=== PATIENT | female | born 1995 | race Caucasian/White ===

== ENCOUNTER → 2016-08-28 16:56 | Outpatient (CLI) | payer BC ==
[~2016-08-28 16:56] MED LIST: COLACE100 MG PO; MOTRIN600 MG PO; PERCOCET 5/3251 TA1 PO; PRENATAL COMPLE1 TAB PO
[2016-08-28 17:26] LABS: BASOPHILS 0.3 % (0.0-2.0); EOSINOPHILS 1.5 % (0-7); HEMATOCRIT 41.9 % (36.0-48.0); HEMOGLOBIN 13.6 g/dL (12-16); IMMATURE GRANULOCYTES 0.2 % (0-5); MCH 28.6 pg (26.0-34.0); MCHC 32.5 g/dL (31.0-37.0); MONOCYTES 4.7 % (2-11); NEUTROPHILS 71.3 % (40-80); RBC 4.76 10x6/uL (4.00-5.40); RDW 12.7 % (11.5-14.5)
[2016-08-28 17:34] LABS: PLATELET COUNT 280 10x3/uL (130-400)
[2016-08-28 17:36] LABS: HEMOGLOBIN A1C 5.4 % (4.8-6.0)
[2016-08-28 18:42] LABS: CALC OSMOLALITY 277 mosm/kg (275-300); CALCIUM 9.4 mg/dL (8.5-10.1); CARBON DIOXIDE 25.9 mmol/L (21.0-32.0); CHLORIDE - SERUM 103 mmol/L (98-107); CREATININE - SERUM 0.9 mg/dL (0.6-1.3); GLUCOSE 102 mg/dL (74-106); POTASSIUM - SERUM 3.5 mmol/L (3.5-5.1); SODIUM 140 mmol/L (136-145); T4 THYROXIN - FREE 0.97 ng/dL (0.76-1.46); THYROID STIMULATING HORMONE 0.99 uIU/mL (0.36-3.74); UREA NITROGEN 11 mg/dL (7-18); eGFR NON AFRICAN AMERICAN 85 mL/min (90-120)
[2016-08-30 10:20] LABS: FOLATE (FOLIC ACID) - SERUM 13.3 ng/mL (>3.0)
== END | disposition home or self-care (01) ==
LOC: D.LAB 16:56
PROVIDERS: Specialist
DX: R53.83 Other fatigue (principal); R53.81 Other malaise

== ENCOUNTER 2017-01-23 17:27 | Emergency (ER) | payer BC ==
[2017-01-23 18:09] LABS: BASOPHILS 0.1 % (0-2); HEMATOCRIT 41.2 % (36.0-48.0); HEMOGLOBIN 13.7 g/dL (12-16); IMMATURE GRANULOCYTES 0.3 % (0-5); MCH 28.7 pg (26.0-34.0); MCHC 33.3 g/dL (31.0-37.0); MCV 86.4 fL (80.0-100.0); MEAN PLATELET VOLUME 8.9 fL (7.4-10.4); MONOCYTES 6.2 % (2-11); NEUTROPHILS 76.4 % (40-80); PLATELET COUNT 300 10x3/uL (130-400); RBC 4.77 10x6/uL (4.00-5.40); RDW 12.7 % (11.5-14.5)
[2017-01-23 18:42] LABS: HCG SERUM NEGATIVE (NEGATIVE)
[2017-01-23 18:43] LABS: ALKALINE PHOSPHATASE 53 U/L (46-116); ALT (SGPT) 25 U/L (10-68); BILIRUBIN - TOTAL 0.26 mg/dL (0.2-1.3); CALC OSMOLALITY 280 mosm/kg (275-300); CALCIUM 9.8 mg/dL (8.5-10.1); CARBON DIOXIDE 23.5 mmol/L (21.0-32.0); CHLORIDE - SERUM 104 mmol/L (98-107); CREATININE - SERUM 0.9 mg/dL (0.6-1.3); GLUCOSE 91 mg/dL (74-106); POTASSIUM - SERUM 3.4 mmol/L (3.5-5.1); PROTEIN - SERUM 8.2 g/dL (6.4-8.2); SODIUM 141 mmol/L (136-145); UREA NITROGEN 12 mg/dL (7-18); eGFR NON AFRICAN AMERICAN 85 mL/min (90-120)
[2017-01-23 18:54] LABS: CREATINE KINASE 68 UL (21-215)
[2017-01-23 18:57] LABS: TROPONIN-I < 0.017 ng/mL (0.000-0.060)
== END 2017-01-23 20:07 | disposition home or self-care (01) ==
LOC: D.ER 17:27
PROVIDERS: Emergency Medicine
DX: R07.9 Chest pain, unspecified (principal); R00.0 Tachycardia, unspecified; F17.200 Nicotine dependence, unspecified, uncomplicated

== ENCOUNTER → 2017-01-25 20:20 | Outpatient (CLI) | payer BC ==
[2017-01-25 21:32] LABS: T4 THYROXIN - FREE 1.25 ng/dL (0.76-1.46); THYROID STIMULATING HORMONE 1.51 uIU/mL (0.36-3.74)
[2017-01-30 08:22] LABS: CAT - DOPAMINE <30 pg/mL (0-48); CAT - EPINEPHRINE 29 pg/mL (0-62); CAT - NOREPINEPHRINE 155 pg/mL (0-874)
== END | disposition home or self-care (01) ==
LOC: D.LDO 20:20
PROVIDERS: Obstetrics & Gynecology
DX: Z34.90 Encounter for supervision of normal pregnancy, unspecified, unspecified trimester (principal)

== ENCOUNTER 2017-07-22 07:14 | Day surgery (SDC) | payer BC ==
[~2017-07-22] VITALS: Ht 167.6 cm; Wt 86.8 kg
[2017-07-22] MEDS ORDERED: ZANAFLEX4 MG PO (07:51)
[2017-07-22] MEDS ORDERED: PREMPRO 0.45/1.1 TAB PO (07:52)
[2017-07-22] MEDS ORDERED: VESTURA 3 MG-01 EACH PO (07:52)
[2017-07-22 08:08] LABS: HEMATOCRIT 41.3 % (36.0-48.0); HEMOGLOBIN 13.5 g/dL (12-16); MCH 28.5 pg (26.0-34.0); MCHC 32.7 g/dL (31.0-37.0); MCV 87.1 fL (80.0-100.0); MEAN PLATELET VOLUME 9.4 fL (7.4-10.4); RBC 4.74 10x6/uL (4.00-5.40); RDW 12.5 % (11.5-14.5)
[2017-07-22 08:12] VITALS: BP 126/84; Ht 167.6 cm; Wt 86.8 kg
[2017-07-22 08:14] LABS: HCG URINE NEGATIVE (NEGATIVE)
--- NOTE | 2017-07-22 10:13 | NUR ---
1000-RETURNED TO ROOM FROM GI-ALERT, RESP WITH EASE. DR. BURR IN TO REPORT TO PATIENT AND MOTHER. FULL LIQUIDS SERVED.
--- NOTE | 2017-07-22 10:34 | NUR ---
1030-UP TO BATHROOM, VOIDS. IV D/C. DISCHARGE INSTRUCTIONS REVIEWED.
--- NOTE | 2017-07-22 10:43 | NUR ---
1040-D/C HOME VIA WHEELCHAIR WITH MOTHER TO PRIVATE AUTO.
--- NOTE | 2017-08-01 10:48 | OP ---
PATIENT NAME: JOHN RICHARD MEDICAL RECORD: [id number] :96 LOCATION:[facility] ADMISSION DATE: SURGEON: KIRTI BURR DO DATE OF OPERATION: 07/22/2017 PROCEDURE: EGD with biopsies. INDICATIONS FOR PROCEDURE: Heartburn, nausea, epigastric pain. SCOPE: Olympus video gastroscope. MEDICATIONS: Propofol 400 mg IV per anesthesia. ESTIMATED BLOOD LOSS: Minimal. COMPLICATIONS: None. FINDINGS: Informed consent was given. The patient was made comfortable with the above medication. After reaching an adequate level of sedation by slow IV push, the patient was placed on her left side. The endoscope was then advanced under direct visualization through the mouth to the second portion of the duodenum. The upper, middle, and lower thirds of the esophagus appeared normal. At the GE junction, there was very minimal and mild evidence of LA class A reflux-induced esophagitis. The endoscope was advanced beyond the GE junction into the stomach and retroflexed to view the cardia where a very small sliding hiatal hernia was present. The entire stomach appeared normal, but there was some patchy erythema and granularity consistent with possible gastritis. Random biopsies were taken with cold forceps to submit for histology and to rule out H pylori. The endoscope was advanced beyond the pylorus into the duodenum where the bulb and second portion of the duodenum appeared normal. The endoscope was then withdrawn from the patient. The patient tolerated the procedure well and there were no complications. IMPRESSION: 1. Very minimal LA class A reflux-induced esophagitis. 2. Very small sliding hiatal hernia. 3. Possible gastritis with biopsies pending. PLAN AND RECOMMENDATIONS: 1. Discharge home when recovery parameters are met. 2. Continue current diet. 3. Trial of Protonix 40 mg daily times 30 days. 4. PIPIDA scan to rule out gallbladder dyskinesia based on symptoms. 5. Gastric emptying study to rule out gastroparesis based on nausea and epigastric pain. 6. Further recommendations pending results of radiology studies and trial of PPI as well as biopsy results on today examination. TRANSINT:[id number] Voice Confirmation ID: [id number] DOCUMENT ID: [id number] OPERATIVE REPORT [id number] JOHN RICHARD KIRTI BURR DO at 1048 CC: [id number] DICTATION DATE: 07/22/17 0947 COMPENSATION EXPERT: 07/22/17 1034 [facility] 07/22/17 [address] [place] [address]
== END 2017-07-22 10:40 | disposition home or self-care (01) ==
LOC: D.OPS 07:14
PROVIDERS: Anesthesiology; Internal Medicine Gastroenterology
DX: R10.13 Epigastric pain (principal); R11.0 Nausea; K21.0 Gastro-esophageal reflux disease with esophagitis; K44.9 Diaphragmatic hernia without obstruction or gangrene; Z01.812 Encounter for preprocedural laboratory examination

== ENCOUNTER → 2017-07-30 09:14 | Outpatient (CLI) | payer BC ==
[2017-07-22 08:12] VITALS: BMI 30.9
[~2017-07-30 09:14] MED LIST changes: +PREMPRO 0.45/1.1 TAB PO; +VESTURA 3 MG-01 EACH PO; +ZANAFLEX4 MG PO
== END | disposition home or self-care (01) ==
LOC: D.NM 09:14
DX: R11.0 Nausea (principal); R10.9 Unspecified abdominal pain

== ENCOUNTER → 2017-08-02 08:05 | Outpatient (CLI) | payer BC ==
[2017-07-22 08:12] VITALS: BMI 30.9
== END | disposition home or self-care (01) ==
LOC: D.NM 08:05
DX: R11.0 Nausea (principal); R10.9 Unspecified abdominal pain

== ENCOUNTER 2017-08-26 06:04 | Day surgery (SDC) | payer BC ==
[~2017-08-26] VITALS: Ht 167.6 cm; Wt 85.5 kg
--- NOTE | ~2017-08-26 | OP ---
PATIENT NAME: JOHN RICHARD MEDICAL RECORD: [id number] :96 LOCATION:[facility] ADMISSION DATE: SURGEON: KIRTI BURR DO DATE OF OPERATION: 08/26/2017 PROCEDURE: Colonoscopy. INDICATIONS FOR PROCEDURE: Constipation and abdominal pain. SCOPE: Olympus video pediatric colonoscope. MEDICATIONS: Propofol 600 mg IV and Versed 2 mg IV per anesthesia. WITHDRAWAL TIME: 7 minutes. ESTIMATED BLOOD LOSS: None. COMPLICATIONS: None. FINDINGS: Informed consent was given. The patient was made comfortable with the above medication. After reaching an adequate level of sedation by slow IV push, the patient was placed on her left side. A digital rectal examination was performed and was normal. The endoscope was then advanced under direct visualization to the terminal ileum. The endoscope was slowly withdrawn and mucosa was carefully examined. Prep quality was good. There were no polyps visualized on today's examination. There were no diverticula or other abnormalities visualized. Retroflexion was performed in the rectum with visualization of grade I, nonbleeding internal hemorrhoids. The endoscope was then unretroflexed and withdrawn from the patient. The patient tolerated the procedure well and there were no complications. IMPRESSIONS: 1. Chronic idiopathic constipation versus irritable bowel syndrome which is constipation predominant in light of a normal colonoscopy to the terminal ileum. 2. Grade I nonbleeding internal hemorrhoids. PLAN AND RECOMMENDATIONS: 1. Discharge home when recovery parameters are met. 2. High fiber diet. 3. Supplement diet with 1-2 tablespoons of psyllium husk fiber daily. 4. Continue use of MiraLax as needed for constipation, which the patient states resolves her symptoms. 5. Recall colonoscopy at age 51 for colorectal cancer screening purposes. TRANSINT:[id number] Voice Confirmation ID: [id number] DOCUMENT ID: [id number] KIRTI BURR DO at 1616 CC: [id number] DICTATION DATE: 08/26/17 08 TOW MOTOR DRIVER: 08/26/17 1103 [facility] 08/26/17 [facility] [address] [place] [address]
[2017-08-26 07:03] VITALS: BP 116/81; Ht 167.6 cm; Wt 85.5 kg
[2017-08-26 07:24] LABS: HCG URINE NEGATIVE (NEGATIVE)
[2017-08-26 07:39] LABS: HEMATOCRIT 41.8 % (36.0-48.0); HEMOGLOBIN 13.7 g/dL (12-16); MCH 28.2 pg (26.0-34.0); MCHC 32.8 g/dL (31.0-37.0); MEAN PLATELET VOLUME 9.3 fL (7.4-10.4); RBC 4.86 10x6/uL (4.00-5.40); RDW 12.7 % (11.5-14.5); WBC 7.2 10x3/uL (4.8-10.8)
== END 2017-08-26 09:14 | disposition home or self-care (01) ==
LOC: D.OPS 06:04
PROVIDERS: Anesthesiology; Internal Medicine Gastroenterology
DX: K59.00 Constipation, unspecified (principal); R10.9 Unspecified abdominal pain; K64.0 First degree hemorrhoids; Z01.812 Encounter for preprocedural laboratory examination

== ENCOUNTER 2017-12-24 05:55 | Day surgery (SDC) | payer BC ==
[2017-12-23 14:36] LABS: BASOPHILS 0.2 % (0-2); EOSINOPHILS 1.1 % (0-7); HEMOGLOBIN 13.1 g/dL (12-16); IMMATURE GRANULOCYTES 0.3 % (0-5); LYMPHOCYTES 17.4 % (15-50); MCH 28.2 pg (26.0-34.0); MCHC 32.8 g/dL (31.0-37.0); MCV 86.2 fL (80.0-100.0); MONOCYTES 4.9 % (2-11); NEUTROPHILS 76.1 % (40-80); PLATELET COUNT 289 10x3/uL (130-400); RBC 4.64 10x6/uL (4.00-5.40)
[2017-12-23 15:05] LABS: CALC OSMOLALITY 278 mosm/kg (275-300); CALCIUM 9.2 mg/dL (8.5-10.1); CARBON DIOXIDE 27.6 mmol/L (21.0-32.0); CHLORIDE - SERUM 104 mmol/L (98-107); CREATININE - SERUM 0.7 mg/dL (0.6-1.3); GLUCOSE 95 mg/dL (74-106); POTASSIUM - SERUM 4.1 mmol/L (3.5-5.1); SODIUM 140 mmol/L (136-145); UREA NITROGEN 12 mg/dL (7-18); eGFR NON AFRICAN AMERICAN > 90 mL/min (90-120)
[~2017-12-24] VITALS: Ht 167.6 cm; Wt 90.3 kg
--- NOTE | ~2017-12-24 | OP ---
PATIENT NAME: JOHN RICHARD MEDICAL RECORD: [id number] :96 LOCATION:[facility] ADMISSION DATE: SURGEON: RUSSELL MORALES MD DATE OF OPERATION: 12/24/2017 PREOPERATIVE DIAGNOSES: 1. Biliary dyskinesia. 2. Gastroesophageal reflux disease. POSTOPERATIVE DIAGNOSES: 1. Biliary dyskinesia. 2. Gastroesophageal reflux disease. PROCEDURE: Laparoscopic cholecystectomy. SURGEON: Russell Morales MD JET SKI MECHANIC: Toma Chavez APRN REPORT OF PROCEDURE: The patient's abdomen was prepped and draped in sterile fashion. A cutdown was made on the superior aspect of the umbilicus, 0 Vicryls were placed in the fascia bilaterally and the fascia was incised with 15-blade. I then bluntly entered the peritoneal cavity and placed a 12-mm Ava port. Under direct visualization, a 5 mm trocar was placed in the epigastrium and 2 more 5-mm trocars were placed in the right subcostal region. The gallbladder was grasped and elevated. The cystic artery and cystic duct were dissected free and these were clipped proximally and distally and ligated in standard fashion. The gallbladder was taken off the liver bed using electrocautery and placed into the right upper quadrant. Any bleeding from the liver bed was treated with electrocautery. We irrigated out the right upper quadrant and assured there was no sign of any bleeding or bile leakage. At this point, the ports and insufflation were then removed and the gallbladder was taken out through the umbilicus. The umbilical fascia was closed with interrupted 0 Vicryls times 3. The wounds were then irrigated out with normal saline and infused with 10 mL of 0.25% Marcaine with epinephrine. The skin incisions were all closed with subcutaneous 5-0 Monocryl and dressed appropriately. COMPLICATIONS: None. CONDITION: Stable. ANESTHESIA: General endotracheal and local. BLOOD LOSS: Minimal. TRANSINT:[id number] Voice Confirmation ID: [id number] DOCUMENT ID: [id number] OPERATIVE REPORT [id number] HILARYJOHN RUSSELL MORALES MD at 1031 CC: [id number] DICTATION DATE: 12/24/17 0848 SPIN INSTRUCTOR: 12/24/17 1340 [facility] 12/24/17 [facility] [address] [place] [address]
[2017-12-24 07:13] VITALS: BP 115/76; Ht 167.6 cm; Wt 90.3 kg
[2017-12-24 07:40] LABS: HCG URINE NEGATIVE (NEGATIVE)
[2017-12-24] MEDS ORDERED: HYDROCODONE-APA1 TAB PO (08:50)
== END 2017-12-24 11:10 | disposition home or self-care (01) ==
LOC: D.OPS 05:55
PROVIDERS: Surgery
DX: K81.1 Chronic cholecystitis (principal); K21.9 Gastro-esophageal reflux disease without esophagitis; Z01.812 Encounter for preprocedural laboratory examination

== ENCOUNTER 2018-02-14 20:56 | Emergency (ER) | payer BC ==
[~2018-02-14] VITALS: Ht 167.6 cm; Wt 90.0 kg
[~2018-02-14 20:56] MED LIST changes: +HYDROCODONE-APA1 TAB PO
[2018-02-14 21:08] VITALS: Ht 167.6 cm; Wt 90.0 kg
[2018-02-14] MEDS ORDERED: KEFLEX500 MG PO (22:07)
[2018-02-14] MEDS ORDERED: AFRIN15 ML NASAL (22:07)
[2018-02-14 22:53] VITALS: BP 133/89
== END 2018-02-14 22:59 | disposition home or self-care (01) ==
LOC: D.ER 20:56
DX: H66.91 Otitis media, unspecified, right ear (principal); J01.00 Acute maxillary sinusitis, unspecified

== ENCOUNTER 2018-06-14 14:18 | Emergency (ER) | payer BC ==
[~2018-06-14] VITALS: Ht 167.6 cm; Wt 90.9 kg
[~2018-06-14 14:18] MED LIST changes: +AFRIN15 ML NASAL; +KEFLEX500 MG PO
[2018-06-14 14:24] VITALS: Ht 167.6 cm; Wt 90.9 kg
[2018-06-14] MEDS ORDERED: PROTONIX20 MG PO (14:26)
[2018-06-14 16:56] LABS: BASOPHILS 0.4 % (0-2); EOSINOPHILS 0.5 % (0-7); HEMATOCRIT 43.9 % (36.0-48.0); HEMOGLOBIN 14.7 g/dL (12-16); IMMATURE GRANULOCYTES 0.1 % (0-5); LYMPHOCYTES 21.3 % (15-50); MCH 29.2 pg (26.0-34.0); MCHC 33.5 g/dL (31.0-37.0); MCV 87.3 fL (80.0-100.0); MEAN PLATELET VOLUME 9.5 fL (7.4-10.4); MONOCYTES 6.6 % (2-11); NEUTROPHILS 71.1 % (40-80); PLATELET COUNT 313 10x3/uL (130-400); RBC 5.03 10x6/uL (4.00-5.40); RDW 12.9 % (11.5-14.5); WBC 8.5 10x3/uL (4.8-10.8)
[2018-06-14 17:04] LABS: CALC OSMOLALITY 278 mosm/kg (275-300); CALCIUM 9.8 mg/dL (8.5-10.1); CARBON DIOXIDE 26.1 mmol/L (21.0-32.0); CHLORIDE - SERUM 104 mmol/L (98-107); CREATININE - SERUM 0.8 mg/dL (0.6-1.3); GLUCOSE 89 mg/dL (74-106); POTASSIUM - SERUM 3.5 mmol/L (3.5-5.1); SODIUM 141 mmol/L (136-145); UREA NITROGEN 9 mg/dL (7-18); eGFR NON AFRICAN AMERICAN > 90 mL/min (90-120)
[2018-06-14 17:16] VITALS: BP 124/79
== END 2018-06-14 17:25 | disposition home or self-care (01) ==
LOC: D.ER 14:18
PROVIDERS: Family Medicine
DX: K21.9 Gastro-esophageal reflux disease without esophagitis (principal); R51 Headache; R06.02 Shortness of breath

== ENCOUNTER → 2019-07-05 19:25 | Outpatient (CLI) | payer BC ==
[2018-06-14 14:24] VITALS: BMI 32.3
[~2019-07-05 19:25] MED LIST changes: +PROTONIX20 MG PO
[2019-07-05 20:20] LABS: AMORPHOUS SEDIMENT >1+ /lpf (NONE SEEN); APPEARANCE TURBID (CLEAR); BACTERIA MANY /hpf (NEGATIVE); BILIRUBIN NEGATIVE (NEGATIVE); COLOR YELLOW (YELLOW); EPITHELIAL CELLS 25-50 /hpf (0-5); GLUCOSE NEGATIVE (NEGATIVE); KETONE NEGATIVE (NEGATIVE); MUCUS <1+ /lpf (NONE SEEN); NITRITE NEGATIVE (NEGATIVE); PROTEIN NEGATIVE (NEGATIVE); RED CELLS - URINE 0-5 /hpf (0-5); UROBILINOGEN NORMAL (NORMAL)
== END | disposition home or self-care (01) ==
LOC: D.LDO 19:25
PROVIDERS: ATTEND Obstetrics & Gynecology
DX: O47.9 False labor, unspecified (principal); Z3A.00 Weeks of gestation of pregnancy not specified

== ENCOUNTER 2019-07-07 20:50 | Outpatient (CLI) | payer BC ==
[2018-06-14 14:24] VITALS: BMI 32.3
[2019-07-07 21:40] LABS: APPEARANCE CLEAR (CLEAR); BILIRUBIN NEGATIVE (NEGATIVE); COLOR YELLOW (YELLOW); GLUCOSE NEGATIVE (NEGATIVE); KETONE NEGATIVE (NEGATIVE); NITRITE NEGATIVE (NEGATIVE); PROTEIN NEGATIVE (NEGATIVE); SPECIFIC GRAVITY 1.015 (1.005-1.020); UROBILINOGEN NORMAL (NORMAL)
== END 2019-07-08 07:24 | disposition home or self-care (01) ==
LOC: D.LDO 20:50 → D.LD 07-08 01:09 → D.LDO 07-08 07:24
PROVIDERS: ATTEND Student in an Organized Health Care Education/Training Program
DX: O62.9 Abnormality of forces of labor, unspecified (principal); Z3A.00 Weeks of gestation of pregnancy not specified

== ENCOUNTER 2019-08-04 12:10 | Inpatient (IN) | payer BC ==
[~2019-08-04] VITALS: Ht 167.6 cm; Wt 108.9 kg
[2019-08-04 12:34] LABS: HEMATOCRIT 38.6 % (36.0-48.0); HEMOGLOBIN 12.8 g/dL (12-16); MCH 28.8 pg (26.0-34.0); MCHC 33.2 g/dL (31.0-37.0); MCV 86.9 fL (80.0-100.0); MEAN PLATELET VOLUME 9.9 fL (7.4-10.4); RBC 4.44 10x6/uL (4.00-5.40); RDW 13.9 % (11.5-14.5); WBC 14.6 10x3/uL (4.8-10.8)
--- NOTE | 2019-08-04 19:30 | NUR ---
PT VISITING WITH FAMILY, INFORMED PT THAT I WILL COME BACK AND DO ASSESSMENT, PT VERBALIZES UNDERSTANDING, DENIES NEEDS OR PAIN AT THIS TIME
--- NOTE | 2019-08-04 20:00 | NUR ---
ASSESSMENT PER FLOW SHEET, VS OBTAINED, IV IN LEFT WRIST CONVERTED TO SALINE LOCK, FLUSHED WITH NO DIFFICULTY, FF, ML, U/U, LITE BLEEDING NOTED WITH NO CLOTS, PT REPORTS NOT FEELING LIKE SHE NEEDS TO VOID AT THIS TIME, INFORMED PT THAT WE WILL GET HER UP SHORTLY TO VOID, PT VERBALIZES UNDERSTANDING, WILL TRANSFER TO ROOM 1257 HERE SHORTLY, INFORMED PT THAT ASIYA CHARLES RN WILL COME IN TO REMOVE EPIDURAL CATH, BACK TO [facility] AT THIS TIME
--- NOTE | 2019-08-04 20:14 | NUR ---
EPIDURAL CATH. REMOVED WITH BLACK TIP NOTED.
--- NOTE | 2019-08-04 20:20 | NUR ---
PT UP TO BR WITH ASSISTANCE, GAIT STEADY, UNABLE TO VOID AT THIS TIME, ASSISTED PT WITH WERO PAD, PANTIES, AND CLEAN GOWN, PT TRANSFERRED TO [facility] 1257 VIA AMB, GAIT STEADY, WITH ALL BELONGINGS PER FOB, PT TO BED, WILL BRING INFANT TO ROOM
--- NOTE | 2019-08-04 20:30 | NUR ---
INFANT TO ROOM VIA OPEN CRIB CART PER THIS RN, BANDS CHECKED, TO PT'S ARMS FOR , PT ORIENTED TO ROOM, BED IN LOW POSITION, SIDE RAILS X 2, CALL LIGHT IN REACH, FOB AT BEDSIDE
--- NOTE | 2019-08-04 21:00 | NUR ---
PT REQUESTED AND SERVED FRESH H20 AND SNACK BOX, BEDDING PROVIDED TO FOB, PT DENIES FURTHER NEEDS OR PAIN AT THIS TIME
--- NOTE | 2019-08-04 22:40 | NUR ---
PT GROOVING LATHE TENDER LIGHT, PT REPORTS GETTING UP TO BR, THIS RN TO ROOM, PT VOIDED 850 MLS OF LIGHTLY BLOOD TINGED URINE BY SELF WITH NO DIFFICULTY, PT INST ON AND VERBALIZES UNDERSTANDING OF WERO CARE, ASSISTED PT AT THIS TIME WITH IT, PT APPLIED WERO PAD AND PANTIES PER SELF, PT BACK TO BED, REQUESTS MOTRIN FOR CRAMPING
[2019-08-04 22:46] VITALS: BP 116/79; Ht 167.6 cm; Wt 108.9 kg
--- NOTE | 2019-08-04 22:57 | NUR ---
ADM ROSALVARIN PER MD ORDERS, SEE EMAR, PT DENIES FURTHER NEEDS, IN OPEN CRIB CART AND FOB AT BEDSIDE
--- NOTE | 2019-08-05 00:33 | NUR ---
PT RESTING WITH EYES CLOSED, RESP QUIET, NO DISTRESS NOTED, LEFT UNDISTURBED AT THIS TIME, FOB ASLEEP ON COUCH, INFANT IN NSY
--- NOTE | 2019-08-05 02:15 | NUR ---
ICE WATER AND CUP OF JUST ICE SERVED TO PT. PER HER REQUEST. INQUIRED IF PT. WOULD LIKE SOMETHING TO EAT. PT. STATES SHE HAS SNACKS AND DOESN'T NEED ANYTHING FURTHER. FOB ASLEEP ON SOFA.
--- NOTE | 2019-08-05 04:18 | NUR ---
PT AWAKE, PT , DENIES NEEDS OR PAIN AT THIS TIME, FOB ASLEEP ON COUCH
--- NOTE | 2019-08-05 05:45 | NUR ---
PT FLOWER ARRANGER LIGHT, PT , PT REQUESTED AND SERVED FRESH H20, DENIES FURTHER NEEDS OR PAIN AT THIS TIME, FOB ASLEEP ON COUCH
[2019-08-05 06:13] LABS: BASOPHILS 0.1 % (0-2); EOSINOPHILS 0.6 % (0-7); HEMATOCRIT 31.8 % (36.0-48.0); HEMOGLOBIN 10.3 g/dL (12-16); IMMATURE GRANULOCYTES 1.1 % (0-5); LYMPHOCYTES 12.9 % (15-50); MCH 28.2 pg (26.0-34.0); MCHC 32.4 g/dL (31.0-37.0); MCV 87.1 fL (80.0-100.0); MEAN PLATELET VOLUME 9.6 fL (7.4-10.4); MONOCYTES 5.5 % (2-11); NEUTROPHILS 79.8 % (40-80); PLATELET COUNT 226 10x3/uL (130-400); RBC 3.65 10x6/uL (4.00-5.40); WBC 16.3 10x3/uL (4.8-10.8)
[2019-08-05 07:11] LABS: RAPID PLASMA REAGIN Non Reactive (Non Reactive)
--- NOTE | 2019-08-05 07:58 | NUR ---
THIS RN TO ROOM FOR SHIFT ASSESSMENT. PT AAOx3, SITTING UP IN BED, EATING BREAKFAST AND VISITING WITH SIG OTHER WHO IS HOLDING INFANT ON BEDSIDE COUCH. PT DENIES PAIN OR ANY NEEDS. POC DISCUSSED. PT ALLOWED TO CONTINUE EATING BREAKFAST, WILL RETURN FOR SHIFT ASSESSMENT. SRUx2, CL IN REACH.
--- NOTE | 2019-08-05 09:00 | NUR ---
THIS RN TO ROOM FOR SHIFT ASSESSMENT. PT RESTING IN BED ON RIGHT SIDE, EYES CLOSED, RESP EVEN AND UNLABORED. INFANT RESTING IN BEDSIDE BASSINETTE, NO DISTRESS NOTED. PINK, SWADDLED WITH HAT ON. SIG OTHER AWAKE ON BEDSIDE COUCH, INFORMED THIS RN WILL ALLOW PT TO REST AND RETURN AGAIN FOR ASSESSMENT.
--- NOTE | 2019-08-05 10:00 | NUR ---
THIS RN TO ROOM FOR PT CHECK. PT LYING IN BED, SUPINE WITH HOB APPROX 60 DEGREES, RESTING WITH EYES CLOSED. RESP EVEN AND UNLABORED. RESTING IN BEDSIDE BASSINETTE, SWADDLED WITH HAT ON, NO DISTRESS NOTED. PT BED SRUx2, CL IN REACH. WILL ALLOW TO REST.
[2019-08-05 10:15] VITALS: BP 116/80
--- NOTE | 2019-08-05 10:15 | NUR ---
THIS RN TO ROOM FOR SHIFT ASSESSMENT. TO NURSERY BY THIS RN PER PEDI FOR ROUNDING. PT SHIFT ASSESSMENT DONE, VSS, SEE FLOWSHEET FOR DOC. PT DENIES HEAVY LOCHIA DURING NIGHT, STATES SHE PASSED A FEW SMALL CLOTS BUT NOTHING CONCERNING. PT EDUCATED ON S/S TO REPORT, UNDERSTANDING VERBALIZED. FF, ML, U/U. SMALL RUBRA LOCHIA, NO CLOTS NOTED TO PERIPAD AT THIS TIME. PEDAL PULSES 2+ BILAT, MILD GENERALIZED EDEMA TO LE BILAT, NEG HOMANS SIGN BILAT. AM LABS REVIEWED. LEFT WRIST PIV REMOVED WITHOUT INCIDENT, PRESSURE HELD AND BANDAID APPLIED. SRUx2, CL IN REACH.
--- NOTE | 2019-08-05 10:25 | NUR ---
DR DUVALL TO ROOM FOR ROUNDING, ASSESSING PT AND DISCUSSING DISCHARGE TODAY.
--- NOTE | 2019-08-05 11:17 | NUR ---
THIS RN TO ROOM FOR PT CHECK. PT SITTING UP IN BED, VISITING WITH FAMILY. PT PROVIDED WITH PADS AND PANTIES PER REQUEST. PT DENIES FURTHER NEEDS. SRUx2, CL IN REACH. WILL CONT TO MONITOR.
--- NOTE | 2019-08-05 13:00 | NUR ---
THIS RN TO ROOM FOR PT CHECK. PT SITTING UP IN BED, INFANT WITH MOTHER AT BEDSIDE. PT DENIES NEEDS AT THIS TIME. SRUx2, CL IN REACH.
[2019-08-05 13:30] VITALS: BP 130/89
--- NOTE | 2019-08-05 14:47 | NUR ---
PT ADMIN RHOGAM PER ORDER, SEE EMAR. PT PROVIDED WITH ICE WATER PER REQUEST. WILL PROCEED WITH D/C TEACHING.
--- NOTE | 2019-08-05 15:00 | NUR ---
DISCHARGE TEACHING COMPLETED, PT VERBALIZES UNDERSTANDING AND DENIES QUESTIONS. PT SIGNS CHART COPIES, PT COPIES GIVEN. PT UNDERSTANDS TO CALL TO SCHEDULE 4 WEEK F/U APPOINTMENT IN [facility].
--- NOTE | 2019-08-05 16:00 | NUR ---
THIS RN TO ROOM FOR PT CHECK. PT UP TO BR, DENIES NEEDS. AWAITING INFANT D/C INSTRUCTIONS.
--- NOTE | 2019-08-05 19:10 | NUR ---
Patient left unit via wheelchair accompanied by infant and . Patient to POV in stable condition.
== END 2019-08-05 19:10 | disposition home or self-care (01) | DRG 807 ==
LOC: D.LD 12:10
PROVIDERS: ADMIT Student in an Organized Health Care Education/Training Program; ATTEND Student in an Organized Health Care Education/Training Program
PROC: 10E0XZZ Delivery of Products of Conception, External Approach (ICD-10-PCS; principal; 2019-08-04)
PROC: 0KQM0ZZ Repair Perineum Muscle, Open Approach (ICD-10-PCS; 2019-08-04)
PROC: 10907ZC Drainage of Amniotic Fluid, Therapeutic from Products of Conception, Via Natural or Artificial Opening (ICD-10-PCS; 2019-08-04)
DX: O77.0 Labor and delivery complicated by meconium in amniotic fluid (principal); Z37.0 Single live birth; Z3A.40 40 weeks gestation of pregnancy; O70.1 Second degree perineal laceration during delivery; O26.893 Other specified pregnancy related conditions, third trimester; Z31.82 Encounter for Rh incompatibility status